=== PATIENT | female | born 1965 | race Caucasian/White ===

== ENCOUNTER 2020-03-06 08:08 | Outpatient (CLI) | payer OTHER, SELFPAY ==
--- NOTE | 2020-03-06 08:21 | MM_ITS ---
WS: [id number] BILATERAL DIGITAL SCREENING MAMMOGRAM WITH CAD CLINICAL INFORMATION: SCREEN HISTORY: Screening mammogram. No current complaints. COMPARISON: TECHNIQUE: Bilateral CC and MLO views. FINDINGS: Fatty-replaced breasts bilaterally. No suspicious focal mass, asymmetry, calcifications, or architect marine ural distortion. No evidence of malignancy. MM/[place] [id number] IMPRESSION: BI-RADS: 1-Negative FOLLOW UP: 1 Year Follow-up Recommend return to annual screening mammography.
== END 2020-03-06 08:09 | disposition home or self-care (01) ==
LOC: RADSHAW 08:14
PROVIDERS: PCP Family Medicine; Visit Provider Family Medicine
DX: Z12.31 Encounter for screening mammogram for malignant neoplasm of breast (principal)
CPT/HCPCS: 77067

== ENCOUNTER 2020-09-14 09:21 | Outpatient (CLI) | payer OTHER, SELFPAY ==
[2020-09-14 09:35] VITALS: BP 123/84; PULSE 96; RESP 16; TEMP 37.8; O2SAT 95; BMI 36.3
--- NOTE | 2020-09-14 09:56 | AMB.MCA ---
Patient Information Referred by: Dr. Mullen Symptom onset date: 09/06/20 COVID 19 common symptoms: positive fever(s) and cough Other details: Covid test positive [employer] 09/11 [facility] COVID test results: No Data to Display outside results available, scanned Criteria/Plan Inclusion/Exclusion Criteria weight >/= 40kg, + direct test </= 10 days ago and symptom onset </= 10 days ago has diabetes not requiring hospitalization, not requiring oxygen (if not chronically on oxygen) and no increase oxygen requirement (if chronically on oxygen) Patient education patient/caregiver received/reviewed fact sheet, Emergency Use Authorization/unapproved drug status discussed with patient/caregiver, alternatives to this treatment discussed with patient/caregiver, risks and benefits of medication reviewed with patient/caregiver, patient/caregiver given opportunity for questions, which were answered and patient/caregiver consents to receiving Monoclonal Antibody Treatment Plan for treatment Meets criteria for Monoclonal Antibody infusion Ordering Monoclonal Antibody infusion for today Other information 97% RA
[2020-09-14 11:12] VITALS: BP 130/85; PULSE 86; RESP 16; TEMP 37.7; O2SAT 94
[2020-09-14 11:57] VITALS: BP 133/84; PULSE 85; RESP 16; TEMP 37.6; O2SAT 94
[2020-09-14 12:56] VITALS: BP 148/84; PULSE 85; RESP 17; TEMP 38.5; O2SAT 98
[2020-09-14 12:57] VITALS: BP 148/84; PULSE 85; RESP 17; TEMP 38.5; O2SAT 98
== END 2020-09-14 12:57 | disposition home or self-care (01) ==
LOC: OPS 09:22
PROVIDERS: PCP Family Medicine; Referring Provider Nurse Practitioner Family; Visit Provider Nurse Practitioner Family
DX: U07.1 COVID-19 (principal)

== ENCOUNTER → 2020-10-16 07:59 | Outpatient (BNVA) | payer OTHER, SELFPAY | PROVIDERS: PCP Family Medicine; Visit Provider Internal Medicine | DX: E11.9 Type 2 diabetes mellitus without complications (principal); E78.5 Hyperlipidemia, unspecified | CPT/HCPCS: 99204 ==

== ENCOUNTER 2021-03-08 07:11 | Outpatient (CLI) | payer OTHER, SELFPAY ==
--- NOTE | 2021-03-08 07:19 | MM_ITS ---
WS: [id number] Exam: [place] [id number] Date/Time of Exam: 03/08/2021 7:32 AM Reason For Exam: SCREENING VIEWS: MLO and CC views both breasts. Comparison made with prior exam of 02/15/2018, 02/27/2019 and 03/06/2020. Findings: There was no sign of mass, architectural distortion or suspicious calcification in either breast. Fa y MM/[place] [id number] Impression: BI-RADS: 1-Negative FOLLOW-UP: 1 Year Follow-up This mammogram was also analyzed by the Computer Aided Detection System R2 Imag e Drainage Inspector.
== END 2021-03-08 07:12 | disposition home or self-care (01) ==
LOC: RADSHAW 07:15
PROVIDERS: PCP Family Medicine; Visit Provider Family Medicine
DX: Z12.31 Encounter for screening mammogram for malignant neoplasm of breast (principal)
CPT/HCPCS: 77067

== ENCOUNTER → 2021-09-13 10:38 | Outpatient (BNVA) | payer OTHER, SELFPAY | PROVIDERS: PCP Family Medicine; Referring Provider Internal Medicine; Visit Provider Podiatrist Foot & Ankle Surgery | DX: M19.072 Primary osteoarthritis, left ankle and foot (principal) | CPT/HCPCS: 73630 ==

== ENCOUNTER 2022-03-10 10:34 | Outpatient (CLI) | payer OTHER, SELFPAY ==
--- NOTE | 2022-03-10 10:48 | MM_ITS ---
WS: [id number] Exam: [place] [id number] Date/Time of Exam: 03/10/2022 11:18 AM Reason For Exam: SCREENING VIEWS: MLO and CC views both breasts. 3D digital tomosynthesis is also included in this exam. Comparison made with prior exam of 02/15/2018, 02/27/2019, 03/06/2020, 03/08/2021.. Findings: There was no sign of mass, architectural distortion or suspicious calcification in either breast. Fa tty MM/[place] [id number] Impression: BI-RADS: 1-Negative FOLLOW-UP: 1 Year Follow-up This mammogram was also analyzed by the Computer Aided Detection System R2 Imag e Manufacturing Intern.
== END 2022-03-10 10:35 | disposition home or self-care (01) ==
LOC: RAD 10:35
PROVIDERS: PCP Family Medicine; Visit Provider Family Medicine
DX: Z12.31 Encounter for screening mammogram for malignant neoplasm of breast (principal)
CPT/HCPCS: 77063; 77067

== ENCOUNTER → 2022-11-04 15:53 | Outpatient (BNVA) | payer OTHER, SELFPAY | PROVIDERS: PCP Family Medicine; Visit Provider Nurse Practitioner Family | DX: J02.9 Acute pharyngitis, unspecified (principal) | CPT/HCPCS: 87880 ==

== ENCOUNTER 2023-03-13 08:22 | Outpatient (CLI) | payer OTHER, SELFPAY ==
--- NOTE | 2023-03-13 08:30 | MM_ITS ---
WS: [id number] SCREENING DIGITAL BREAST TOMOSYNTHESIS MAMMOGRAM WITH CAD HISTORY: SCREENING COMPARISON: 03/02/2022, 03/08/2021 and 02/27/2019 Bilateral CC and MLO with tomosynthesis and synthetic mammography submitted. Computer aided detection analyzed. Breast composition: There are scattered areas of fibroglandular density. Well-circumscribed 7.6 mm ma ss in the anterior LEFT breast is just posterior, inferior and lateral to the nipple. Recommend addit ional evaluation. RIGHT breast is negative. MM/[place] [id number] IMPRESSION: BI-RADS: 0-Incomplete: Need additional imaging evaluation FOLLOW UP: Need Additional Imaging LEFT breast: Spot compression views (CC and MLO). True ML. Ultrasound to follow if abnormality persists.
== END 2023-03-13 08:23 | disposition home or self-care (01) ==
PROVIDERS: PCP Family Medicine; Visit Provider Family Medicine
DX: Z12.31 Encounter for screening mammogram for malignant neoplasm of breast (principal)
CPT/HCPCS: 77063; 77067

== ENCOUNTER 2023-05-01 07:54 | Outpatient (CLI) | payer OTHER, SELFPAY ==
--- NOTE | 2023-05-01 08:02 | MM_ITS ---
WS: [id number] ADDITIONAL VIEWS LEFT MAMMOGRAM with tomosynthesis. LEFT BREAST ULTRASOUND HISTORY: ABNORMAL MAMMO COMPARISON: 03/13/2023, 03/10/2022,, 03/08/2021 LEFT MAMMOGRAM: Spot compression views and true ML with tomosynthesis and sympathetic mammography. Lobulated mass measuring 7 mm in the anterior LEFT breast. Mass is just lateral and inferior to the n ipple. No calcifications. Mass persists on additional views. LEFT BREAST ULTRASOUND 2-D and color Doppler imaging submitted. Mass in the LEFT breast at 4:00 corresponds to a slightly lobulated minimally complex cyst measuring 8 x 6 x 4 mm. No increased vascularity. IMPRESSION: MM/[place] [id number] BI-RADS: 2-Benign FOLLOW UP: 1 Year Follow-up
== END 2023-05-01 07:55 | disposition home or self-care (01) ==
PROVIDERS: PCP Family Medicine; Visit Provider Family Medicine
DX: R92.8 Other abnormal and inconclusive findings on diagnostic imaging of breast (principal); N63.23 Unspecified lump in the left breast, lower outer quadrant
CPT/HCPCS: 76642; 77061; G0279

== ENCOUNTER → 2023-05-22 14:48 | Outpatient (BNVA) | payer OTHER, SELFPAY | PROVIDERS: PCP Family Medicine; Visit Provider Podiatrist Foot & Ankle Surgery | DX: E11.8 Type 2 diabetes mellitus with unspecified complications (principal); B35.1 Tinea unguium; M21.612 Bunion of left foot; M21.611 Bunion of right foot; Z79.84 Long term (current) use of oral hypoglycemic drugs | CPT/HCPCS: 99213 ==

== ENCOUNTER → 2023-07-19 15:37 | Outpatient (BNVA) | payer OTHER, SELFPAY | PROVIDERS: PCP Family Medicine; Visit Provider Podiatrist Foot & Ankle Surgery | DX: B35.1 Tinea unguium (principal); E11.9 Type 2 diabetes mellitus without complications; M21.611 Bunion of right foot; M21.612 Bunion of left foot; Z79.84 Long term (current) use of oral hypoglycemic drugs | CPT/HCPCS: 99213 ==

== ENCOUNTER 2024-05-06 10:50 | Outpatient (CLI) | payer OTHER, SELFPAY ==
--- NOTE | 2024-05-06 10:58 | MM_ITS ---
WS: [id number] BILATERAL SCREENING DIGITAL TOMOSYNTHESIS MAMMOGRAM WITH CAD HISTORY: SCREENING COMPARISON: 05/01/2023, 03/13/2023, 03/10/2022 Bilateral CC and MLO views with tomosynthesis and synthetic mammography submitted. Computer aided det ection analyzed. Breast composition: The breasts are almost entirely fatty. No suspicious masses, microcalcifications or architectural distortion. Reidentified is a well-circumscribed mass measuring 6 x 6 x 5 mm in the anterior LEFT breast. No new mass or calcifications. MM/MM [facility] tomosynthesis [id number] IMPRESSION: BI-RADS: 2 - Benign. FOLLOW UP: 1 Year Follow-up
== END 2024-05-06 10:51 | disposition home or self-care (01) ==
LOC: RAD 10:54
PROVIDERS: PCP Family Medicine; Visit Provider Family Medicine
DX: Z12.31 Encounter for screening mammogram for malignant neoplasm of breast (principal); R92.313 Mammographic fatty tissue density, bilateral breasts; N63.20 Unspecified lump in the left breast, unspecified quadrant
CPT/HCPCS: 77063; 77067

== ENCOUNTER 2025-05-12 08:15 | Outpatient (CLI) | payer OTHER, SELFPAY ==
--- NOTE | 2025-05-12 08:23 | MM_ITS ---
WS: [id number] BILATERAL SCREENING DIGITAL TOMOSYNTHESIS MAMMOGRAM WITH CAD HISTORY: SCREENING COMPARISON: 05/06/2024, 05/01/2023, 03/10/2022 Bilateral CC and MLO views with tomosynthesis and synthetic mammography submitted. Computer aided detection analyzed. Breast composition: The breasts are almost entirely fatty. No suspicious masses, microcalcifications or architectural distortion. Long-term stability well- circumscribed 6:00 mass in the anterior breast measuring 4 x 5 x 6 mm. Noted to be a complex cyst on a prior ultrasound. No suspicious grouping of c alcifications and no distortion. MM/MM [place] tomosynthesis [id number] IMPRESSION: BI-RADS: 2 - Benign. FOLLOW UP: 1 Year Follow-up
== END 2025-05-12 08:16 | disposition home or self-care (01) ==
LOC: RAD 08:16
PROVIDERS: PCP Family Medicine; Visit Provider Family Medicine
DX: Z12.31 Encounter for screening mammogram for malignant neoplasm of breast (principal); R92.313 Mammographic fatty tissue density, bilateral breasts; N63.25 Unspecified lump in the left breast, overlapping quadrants
CPT/HCPCS: 77063; 77067

== ENCOUNTER 2025-06-02 12:37 | Outpatient (CLI) | payer OTHER, SELFPAY ==
--- NOTE | 2025-06-02 12:40 | XR_ITS ---
WS: [id number] DEXA (DUAL ENERGY X-RAY ABSORPTIOMETRY) Bone mineral density was performed using a [employer] machine. HISTORY: SCREENING FOR OSTEOPOROSIS COMPARISON: None available. Lumbar spine BMD (L1-L4): 1.299 g/cm2 T score: 1.0 Z score: 1.4 Total hip BMD: Left: 1.022 g/cm2. T score: 0.1 Z score: 0.5 Right: 1.057 g/cm2. T score: 0.4 Z score: 0.8 10 year probability of a major osteoporotic fracture is 6.4%. XR/XR DEXA axial skeleton* [id number] IMPRESSION: NORMAL BONE MINERAL DENSITY based upon the WHO classification for females.
== END 2025-06-02 12:38 | disposition home or self-care (01) ==
LOC: RAD 12:38
PROVIDERS: PCP Family Medicine; Visit Provider Family Medicine
DX: Z13.820 Encounter for screening for osteoporosis (principal); Z78.0 Asymptomatic menopausal state
CPT/HCPCS: 77080